=== PATIENT | male | born 1985 | race African-American/Black ===

== ENCOUNTER 2025-04-20 00:04 | Emergency (ER) | payer OTHER ==
[~2025-04-20] VITALS: Ht 175.3 cm; Wt 83.9 kg
[2025-04-20] MEDS ORDERED: ALBUTEROL FS 2.5 MG/0.5 ML VIAL.NEB ONE (00:17)
[2025-04-20] MEDS: ALBUTEROL FS 2.5 MG/0.5 ML VIAL.NEB NEB ONE (00:19)
[2025-04-20 00:20] VITALS: O2SAT 99
[2025-04-20] MEDS ORDERED: ALBU8.5H8 INH (00:23)
[2025-04-20] MEDS ORDERED: PRED50TA PO (00:23)
[2025-04-20 00:37] VITALS: O2SAT 99
[2025-04-20] MEDS: dexaMETHasone SOD PHOSPHATE 4 MG/ML VIAL IM ONE (00:56)
[2025-04-20 00:57] VITALS: BP 124/70; TEMP 97.6; O2SAT 99
== END 2025-04-20 01:14 | disposition home or self-care (01) ==
LOC: ER 00:08
DX: J98.01 Acute bronchospasm (principal); F17.210 Nicotine dependence, cigarettes, uncomplicated; Z79.52 Long term (current) use of systemic steroids; Z60.2 Problems related to living alone